=== PATIENT | male | born 1990 | race African-American/Black ===

== ENCOUNTER 2023-06-01 22:23 | Emergency (ER) | payer MEDICAID, OTHER ==
[~2023-06-01] VITALS: Ht 188 cm; Wt 82.0 kg
[2023-06-01 22:28] VITALS: O2SAT 99
[2023-06-01 22:56] LABS: HEMATOCRIT 44.2 % (42.0-52.0); HEMOGLOBIN 14.4 g/dL (14.0-18.0); MEAN CORPUSCULAR HEMOGLOBIN 26.2 pg (28.0-32.0); MEAN CORPUSCULAR HGB CONC 32.6 g/dL (31.0-37.0); MEAN CORPUSCULAR VOLUME 80.3 fL (80.0-94.0); PLATELET 216 x1000/uL (130-400); RED CELL DISTRIBUTION WIDTH 14.4 % (11.6-14.6); WHITE BLOOD COUNT 8.4 x1000/uL (4.5-11.0)
[2023-06-01 23:04] LABS: CHLORIDE 107 mEq/L (98-107); INDEX HEMOLYSI 1 (1-3); INDEX ICTERIC 1 (1-4); INDEX LIPEMIC 1 (1-3); SODIUM 138 mEq/L (136-145)
[2023-06-01 23:35] LABS: ALANINE AMINOTRANSFERASE 78 IU/L (13-61); ALBUMIN 3.8 g/dL (3.4-5.0); ASPARTATE AMINOTRANSFERASE 231 IU/L (15-37); BILIRUBIN TOTAL 0.6 mg/dL (0.1-1.0); CALCIUM 8.6 mg/dL (8.5-10.1); CARBON DIOXIDE 32 mEq/L (21-32); CREATINE KINASE 10747 IU/L (39-308); CREATININE 1.3 mg/dL (0.6-1.3); GLUCOSE 116 mg/dL (70-105); PROTEIN TOTAL 7.9 g/dL (6.0-8.3); UREA NITROGEN BLOOD 18 mg/dL (7-21)
[2023-06-02] MEDS ORDERED: SODIUM CHLORIDE 0.9% 1000ML BAG (SEPSIS BOLUS) IV NR
[2023-06-02 03:31] VITALS: BP 126/79; PULSE 72; RESP 20; TEMP 98.1
== END 2023-06-02 03:48 | disposition short-term general hospital (02) ==
LOC: ER 22:23 → EDBD 22:23 → ER 06-02 03:48
DX: M62.82 Rhabdomyolysis (principal); M79.604 Pain in right leg; M79.605 Pain in left leg
CPT/HCPCS: 80053; 82550; 85027; 36415; 99291; 93970; Z7610